=== PATIENT | male | born 1985 | race Hispanic/Latino ===

== ENCOUNTER 2017-07-18 18:33 | Emergency (ER) | payer BC, OTHER ==
--- NOTE | 2017-07-18 20:36 | RAD ---
THREE VIEWS LEFT ANKLE: Comparison: None. History: Left ankle pain after injury playing basketball. FINDINGS: Three views left ankle shows moderate lateral soft tissue swelling. There is no evidence of acute fra cture or dislocation. No degenerative changes are seen. IMPRESSION: Soft tissue swelling without underlying osseous abnormality. POS: [facility]
--- NOTE | 2017-07-18 20:37 | RAD ---
THREE VIEWS OF THE LEFT FOOT: Comparison: None. History: Twisted foot and ankle playing basketball with pain and swelling. FINDINGS: Three views of the left foot shows no evidence of acute fracture or dislocation. There is soft tissue swelling surrounding the ankle. No degenerative changes are seen. IMPRESSION: No evidence of acute osseous abnormality. POS: [facility]
== END 2017-07-18 19:36 | disposition home or self-care (01) ==
LOC: SCSER 18:33
DX: S93.402A Sprain of unspecified ligament of left ankle, initial encounter (principal); J45.909 Unspecified asthma, uncomplicated; X50.1XXA Overexertion from prolonged static or awkward postures, initial encounter; Y93.67 Activity, basketball; Y99.0 Civilian activity done for income or pay